=== PATIENT | female | born 1935 | race Caucasian/White ===

== ENCOUNTER 2016-11-24 17:35 | Inpatient (IN) | payer MEDICARE, BC ==
[~2016-11-24] VITALS: Ht 162.6 cm; Wt 42.7 kg
--- NOTE | ~2016-11-24 | DS ---
PATIENT'S NAME: AUDREY MICHELLE [facility] AGE: 81 Y [address] ROOM: [address] [address] LOCATION: [facility] ADMIT DATE: 11/24/2016 Discharge Summary DISCHARGE DATE: 11/27/2016 FAMILY PHYSICIAN: Danny Reich MD ATTENDING PHYSICIAN: Gabriel Lindquist PRIMARY DIAGNOSIS: Intertrochanteric fracture of the right hip. SECONDARY DIAGNOSES: 1. Dementia. 2. Hypertension. PROCEDURE PERFORMED: Open reduction and internal fixation of right hip intertrochanteric fracture with intramedullary device (gamma nail). HISTORY: The patient is an 81-year-old female transferred to [facility] from the [facility] where she was diagnosed with a right hip fracture after she fell at the skilled nursing where she resides. The patient has advanced dementia and is a severely compromised historian. Please refer to her consultation notes as well as her admission history and physical. HOSPITAL COURSE: The patient underwent the above specified procedure on 11/25/2016 without complications. General endotracheal anesthesia plus subcutaneous local anesthesia was utilized. She received 24 hours of perioperative prophylactic antibiotics. She remained hemodynamically stable and neurovascularly intact throughout her entire hospital course. Her postoperative deep venous thrombosis prophylaxis consisted of Lovenox, early mobilization, and pneumatic compression devices. She received daily physical therapy for gait training and transfer training, but the nurses had to consistently use lift for transfers. On her day of discharge on 11/27/2016, incisions of the hip were healing well and showed no signs of infection. DISPOSITION: To [facility]. DISCHARGE DIET: Diet as tolerated. DISCHARGE ACTIVITY: She is to be strict toe-touch weightbearing of her right lower extremity. There is to be no right hip strengthening or range of motion exercises. There is to be no dressing changes. She is to notify Dr. Witt immediately if she experiences increased pain, fevers, chills, erythema or drainage. DISCHARGE MEDICATIONS: 1. Lovenox 30 mg subcu daily for 14 days for postoperative DVT prophylaxis. 2. [place] 5/325 mg 1-2 tablets p.o. every 4 hours p.r.n. for pain. PATIENT'S NAME: AUDREY MICHELLE [facility] AGE: 81 Y [address] ROOM: [address] [address] LOCATION: [facility] ADMIT DATE: 11/24/2016 Discharge Summary DISCHARGE DATE: 11/27/2016 FAMILY PHYSICIAN: Danny Reich MD ATTENDING PHYSICIAN: Gabriel Lindquist 3. She was then instructed to continue all her other preadmission medications as instructed by her internal medicine doctor. FOLLOWUP APPOINTMENT: Followup appointment is to be with Dr. Witt's office 1 week subsequent to dismissal from the hospital for her initial postoperative evaluation with x-rays of the hip at that time. ROBBIN CABALLERO PA-C FOR MD SEEMA HOUGH/sheyla /[id number] d: 12/03/16512 t: 12/03/16 0921, DISCHARGE SUMMARY
--- NOTE | ~2016-11-24 | DS ---
PATIENT'S NAME: AUDREY MICHELLE [facility] AGE: 81 Y [address] ROOM: [id number] [place], [place] [address] LOCATION: G3 ADMIT DATE: 11/24/2016 Discharge Summary DISCHARGE DATE: 11/27/2016 FAMILY PHYSICIAN: Danny Reich MD ATTENDING PHYSICIAN: Gabriel Lindquist FINAL/DISCHARGE DIAGNOSES: 1. Right hip fracture status post open reduction and internal fixation. 2. Dementia. 3. Hypertension. CONSULTATIONS: Consultants on the case: Dr. Witt, Orthopedics. PROCEDURES PERFORMED: Open reduction and internal fixation of the right hip on 11/25/2016. HOSPITAL COURSE: Please see details of admission and H and P by Dr. Lindquist. Briefly, the patient was admitted on the hip fracture pathway. Dr. Witt was consulted and recommended ORIF for the patient. She was found to be an adequate candidate for surgical intervention. Surgery was performed on 11/25/2016. Postoperatively, the patient did well. Her pain was controlled with Tylenol and [place]. Her baseline confusion persisted, but did not worsen throughout her stay. The patient did have poor appetite which is unchanged from her baseline as well. Lovenox was utilized for DVT prophylaxis. Physical and Occupational Therapy worked with the patient postoperatively. It was felt that she could benefit from returning to her prison facility and continuing therapy there. It was felt by our green party that the patient could return on 11/27/2016. IMAGING STUDIES: Diagnostics: 1. X-ray of the hip shows postoperative changes of the ORIF of the right hip. 2. A chest x-ray on the shows no vascular congestion or acute parenchymal infiltrates. LABORATORY DATA: On admission; sodium 136, potassium 4.5, chloride 101, bicarbonate 27, glucose 121, BUN 25, and creatinine 0.9. Albumin was 3.3. Prealbumin on November 24 was 30. On admission, white blood cell count was 10.3, hemoglobin 10.1, hematocrit 30.6, and platelets 316,000. INR 1.0. Urinalysis showed 500 leukocyte esterase, nitrite negative, and 30 of protein. Micro shows a full field of white blood cells, 20-50 red blood cells, a few bacteria, 2-5 epithelials, and 1+ mucus. DISCHARGE INSTRUCTIONS: The patient was discharged to prison facility in [place] under the care of Dr. Reich and Dr. Witt. The PATIENT'S NAME: AUDREY MICHELLE [facility] AGE: 81 Y [address] ROOM: [address] [place], [place] [address] LOCATION: [facility] ADMIT DATE: 11/24/2016 Discharge Summary DISCHARGE DATE: 11/27/2016 FAMILY PHYSICIAN: Danny Reich MD ATTENDING PHYSICIAN: Gabriel Lindquist patient will follow up with Dr. Witt on 12/06/2016 at 9:10 a.m. Code status is full code. Diet is as tolerated. Weightbearing is toe-touch on the right. No hip range of motion or strengthening. We will continue occupational and physical therapies. We will use oxygen as needed to maintain sats greater than 90%. The patient is to have CATRACHITO hose bilaterally, on in the morning and off at night. We will get a CBC drawn on 12/02/2016. Dressing changes; patient has a Mepilex in place. No dressing changes. Staff was instructed to call Dr. Witt immediately if any signs of infection, increased pain or swelling, erythema or drainage. The patient's rehabilitation potential is fair. Discharge potential is fair. The patient and family are aware of condition and diagnosis on discharge. DISCHARGE MEDICATIONS: 1. Lovenox 30 mg daily with a start date of 11/26/2016, with a stop date of 12/09/2016. 2. Pepcid 20 mg twice daily. 3. Lisinopril 30 mg daily. Hold if systolic blood pressure is less than 110. 4. Multivitamin 1 tablet daily. 5. Hydrocodone and acetaminophen 5/325, 1 to 2 tablets every 4 hours as needed. 6. Tylenol 500 to 1000 mg every 6 hours as needed. 7. Milk of magnesia 30 mL as needed. 8. Pramosone cream 2.5% applied topically twice daily. 9. Namenda XR 28 mg daily. 10. Travatan ophthalmic drops, 1 drop each eye daily. We do appreciate participating in this patient's care, and thank you very much for the ability to serve her while hospitalized at [facility]. Time spent coordinating details of discharge was less than 30 minutes of which was spent coordinating with consulting physicians and Care Management, completion of medication reconciliation, and education to the patient and family on the above-mentioned diagnoses. ALEKSANDRA ROSS FOR MD MAURISIO JACKSON/dakotal /[id number] d: 11/28/16 1424 t: 12/03/16 0951, DISCHARGE SUMMARY
--- NOTE | ~2016-11-24 | HP ---
PATIENT'S NAME: AUDREY MICHELLE [facility] AGE: 81 Y [address] ROOM: [place] [address] LOCATION: [facility] ADMIT DATE: 11/24/2016 History & Physical DISCHARGE DATE: FAMILY PHYSICIAN: PHYSICIAN, UNKNOWN ATTENDING PHYSICIAN: KD JUNIOR DATE OF SERVICE: CHIEF COMPLAINT: Fall and right hip fracture. HISTORY OF PRESENT ILLNESS: This is an 81-year-old female who has dementia and lives at a facility, apparently fell at the facility today and was found to have a right hip fracture on evaluation. Etiology of the fall appears unclear. The patient is not known to have recurrent falls and is probably a mechanical fall. The patient during my visitation today is resting comfortably, is in moderate distress from the pain at the fracture site. The patient is pleasantly confused, but is awake and at baseline mental status from that standpoint. The patient has a history of hypertension, but otherwise does not report any chest pain, shortness of breath, dizziness, or lightheadedness. No fever or chills reported as well. PAST MEDICAL HISTORY: 1. Dementia. 2. Hypertension. SOCIAL HISTORY: The patient lives in a residential. Has a history of smoking, but stopped in August 2016. No alcohol or drug use history reported. FAMILY HISTORY: The patient has a family history of hypertension and diabetes in the mother. REVIEW OF SYSTEMS: 10-point review of systems was conducted and were all negative except as mentioned in the HPI. PHYSICAL EXAMINATION: VITAL SIGNS: Blood pressure 130/80, pulse 78, respiratory rate 14, saturating 98% on room air. GENERAL: Awake, alert, and oriented x2, in mild distress from pain. HEENT: Moist mucous membranes. No scleral icterus or conjunctival pallor noted. SKIN: Without rash or lesions. PATIENT'S NAME: AUDREY MICHELLE [facility] AGE: 81 Y [address] ROOM: [place] [address] LOCATION: [facility] ADMIT DATE: 11/24/2016 History & Physical DISCHARGE DATE: FAMILY PHYSICIAN: PHYSICIAN, UNKNOWN ATTENDING PHYSICIAN: KD JUNIOR CHEST: Clear to auscultation bilaterally. HEART: S1, S2. Regular rate and rhythm. ABDOMEN: Soft, nontender, nondistended. MUSCULOSKELETAL: Right hip tenderness to palpation and unable to move due to pain. NEURO: Grossly nonfocal. ASSESSMENT AND PLAN: 1. Right hip fracture secondary to fall. Plan for ORIF by Dr. Witt tomorrow afternoon. 2. Dementia. The patient's mental status at baseline. 3. Hypertension. We will continue the patient's home meds. 4. Deep venous thrombosis prophylaxis per Ortho following surgery. MD JORGE LUIS AVILEZ/sheyla /[id number] D: [id number] T: [id number] HISTORY & PHYSICAL
--- NOTE | ~2016-11-24 | OR ---
PATIENT'S NAME: AUDREY MICHELLE [facility] AGE: 81 Y [address] ROOM: [address] [address] LOCATION: [facility] ADMIT DATE: 11/24/2016 OR/Procedure Report DISCHARGE DATE: FAMILY PHYSICIAN: Danny Reich MD ATTENDING PHYSICIAN: KD JUNIOR SURGEON: Norman Witt MD ACCOUNT SUPPORT ASSOCIATE: DATE OF PROCEDURE: 11/25/2016 PREOPERATIVE DIAGNOSIS: Intertrochanteric fracture, right hip. POSTOPERATIVE DIAGNOSIS: Intertrochanteric fracture, right hip. PROCEDURE PERFORMED: Open reduction and internal fixation of right hip intertrochanteric fracture with intramedullary device (gamma nail). SURGEON: Norman Witt MD. ANESTHESIA: General endotracheal anesthesia plus subcutaneous local anesthesia (ropivacaine with epinephrine). ESTIMATED BLOOD LOSS: Less than 100 mL. IMPLANTS: 1. Synthes TFNA 11 mm x 235 mm 125 degree standard gamma nail. 2. 38 mm distal interlocking screw. 3. 85 mm TFNA screw. 4. Proximal anti-rotational set screw. DRAINS: None. SPECIMEN: None. COMPLICATIONS: None. INDICATION FOR PROCEDURE: Please refer to my separately dictated consultation note. The patient presents with a right hip intertrochanteric fracture. Operative and nonoperative options have been reviewed. Potential adverse sequelae of the injury itself have been reviewed. Risks, benefits, limitations, and indications for surgery have been thoroughly reviewed and informed consent has been granted. We have specifically reviewed risks and implications of the following: Infection, malunion, nonunion, deep venous thrombosis, pulmonary embolism, mortality, neurovascular complications, blood transfusion risks, decubitus ulcer formation, pneumonia, avascular necrosis, and the potential need for further surgery (including the potential need for PATIENT'S NAME: AUDREY MICHELLE [facility] AGE: 81 Y [address] ROOM: [address] [address] LOCATION: [facility] ADMIT DATE: 11/24/2016 OR/Procedure Report DISCHARGE DATE: FAMILY PHYSICIAN: Danny Reich MD ATTENDING PHYSICIAN: KD JUNIOR salvage with hip hemiarthroplasty versus total hip arthroplasty). We have discussed the necessity for 2 months of restricted weightbearing postoperatively. A preoperative internal medicine consultation has been obtained, and the patient has been medically cleared for surgery. DESCRIPTION OF PROCEDURE: The patient was positioned supine on the fracture table after administration of anesthesia and prophylactic antibiotics. The correct side and anticipated procedure were confirmed via a verbal timeout including myself, the clerical order filler, and the circulating nurse. A well-padded groin post was placed. Both feet and ankles were well padded. The left foot was placed into a stirrup-type leg nixon. The right foot was placed into a traction boot. Under fluoroscopic guidance, gentle longitudinal traction and internal rotation were applied across the fracture site through the right foot until a suitable reduction had been confirmed under AP and lateral fluoroscopic imaging. The lateral aspect of the right hip and thigh were scrubbed, prepped, and draped with vigilant sterile technique. The tip of the right greater trochanter was approached through a 5 cm direct lateral longitudinal incision. The iliotibial band was sharply divided longitudinally in line with the overlying skin incision. The tip of the right greater trochanter was palpated, and a cannulated awl was utilized to access the intramedullary canal of the proximal femur through the tip of the right greater trochanter. A ball tipped guidewire was placed through the awl and across the fracture site under fluoroscopic guidance, and the awl was subsequently removed. The cannulated entrance reamer was utilized through the appropriate soft tissue guide. The gamma nail was seated to the appropriate depth over the guidewire, and the guidewire was extracted. Fluoroscopic imaging confirmed appropriate position of the gamma nail. The outrigger guide and guide cannula were subsequently utilized to place a threaded-tipped guidewire centrally within the right femoral head and neck through a separate direct lateral 2 cm longitudinal incision. Appropriate position of the guidewire was confirmed under AP and lateral fluoroscopic imaging. Appropriate depth for the lag screw was measured. The cannulated reamer was set to the appropriate depth and fully seated through the appropriate soft tissue guide. The lag screw was seated to the appropriate depth under AP and lateral fluoroscopic guidance. The anti- rotational set screw was deployed. The outrigger guide and cannula were subsequently utilized to place the distal interlocking screw through a separate 5 mm direct lateral longitudinal incision. AP, lateral, and oblique fluoroscopic imaging of the right hip and right PATIENT'S NAME: SOTERO MICHELLEIE [facility] AGE: 81 Y [address] ROOM: [address] [address] LOCATION: [facility] ADMIT DATE: 11/24/2016 OR/Procedure Report DISCHARGE DATE: FAMILY PHYSICIAN: Danny Reich MD ATTENDING PHYSICIAN: KD JUNIOR proximal femur confirmed appropriate position of all hardware and maintenance of an appropriate reduction of the fracture. Each of the 3 incisions was thoroughly irrigated with bacteriostatic saline lavage. The fascia was closed with simple deep interrupted 0 Vicryl sutures. Each of the incisions was closed with superficial buried interrupted 2-0 Vicryl sutures and surgical dustin. The dressings consisted of Xeroform gauze, sterile gauze, and occlusive tape. There were no complications. The patient was carefully transferred off the fracture table and transported to the postanesthesia care unit in stable condition. MD MARCOS HOUGH/sheyla /[id number] d: 11/25/168 t: 11/26/162115, OPERATIVE SUMMARY
--- NOTE | ~2016-11-24 | CON ---
PATIENT'S NAME: AUDREY SANDOVAL [facility] AGE: 81 Y [address] ROOM: [place] [address] [place] [facility] ADMIT DATE: 11/24/2016 Consultation DISCHARGE DATE: FAMILY PHYSICIAN: PHYSICIAN, UNKNOWN ATTENDING PHYSICIAN: KD JUNIOR REFERRING PHYSICIAN: SIERRA HUTCHISON MD HISTORY OF PRESENT ILLNESS: Ms. Sandoval is an 81-year-old female, transferred to [facility] from the [facility] where she was diagnosed with a right hip fracture today after she fell at the assisted where she resides. The patient has advanced dementia and is a severely compromised historian. She is not able to relate the circumstances of a fall. She is accompanied by her apsnhuga-yi-gza and grandson who report that she fell at the assisted. They state that she had no known history of preexisting right hip pain. She denies pain elsewhere as a result of the incident. The patient was living independently until she fell last year and fractured her left wrist. She underwent closed reduction and percutaneous pinning with an unspecified orthopedic surgeon in [place] who recently removed the "pins" from her left wrist. The patient spent most of her time in a wheelchair at the correction facility after the wrist fracture. They have recently re-initiated gait training. The patient has been weak and demonstrating compromised balance. It is uncertain whether or not she was using her walker when she fell. ACTIVE MEDICAL PROBLEMS: Dementia. ALLERGIES: PENICILLIN AND CIPROFLOXACIN. REVIEW OF SYSTEMS: No history of diabetes mellitus. No history of deep venous thrombosis. SOCIAL HISTORY: longterm resident accompanied by her [id number] and grandson. PHYSICAL EXAMINATION: GENERAL: The patient is alert and responsive and confabulating. She is not agitated. MUSCULOSKELETAL: She demonstrates painless, unrestricted active range of motion of her cervical spine and both upper extremities. The right lower extremity is shortened and externally rotated versus the left. There is no pain with passive range of motion of the left hip. There is pain with gentle passive range of motion of the right hip. There is no swelling or tenderness PATIENT'S NAME: AUDREY SANDOVAL [facility] AGE: 81 Y [address] ROOM: [place] [address] [place] [facility] [place] DATE: 11/24/2016 Consultation DISCHARGE DATE: FAMILY PHYSICIAN: PHYSICIAN, UNKNOWN ATTENDING PHYSICIAN: KD JUNIOR at either knee. She is able to actively dorsiflex and plantar flex the right ankle with 4-/5 motor strength. 2+ dorsalis pedis pulse on the right. RADIOGRAPHS: I have reviewed the outside radiographs of the right hip. There is a comminuted intertrochanteric fracture with varus malalignment. There is no hardware. There is no lytic lesion. There is significant generalized osteopenia. IMPRESSION: Comminuted intertrochanteric right hip fracture with significant generalized osteopenia and dementia. RECOMMENDATIONS: I have discussed the etiology and natural history of this condition. I have discussed the operative and nonoperative options. I have discussed potential adverse sequelae of the injury itself. I have recommended open reduction and internal fixation with an intramedullary device. I have discussed technical aspects of surgery as well as risks and limitations thereof. I specifically discussed the potential for infection, malunion, nonunion, and neurovascular complications, blood transfusion risks, as well as the potential need for further surgery and this is including the potential need for salvage with hemiarthroplasty. The patient has been placed at bedrest. Mechanical DVT prophylaxis and incentive spirometry have been initiated. The patient has been admitted to the hospitalist service. The hospitalist team will provide preoperative medical optimization as well as perioperative medical management. I have informed the patient and her family members to anticipate 2 months of restricted weightbearing and transfer back to the correction facility from where she came. All of their questions and concerns have been answered to their satisfaction. We will proceed with surgery tomorrow (pending medical clearance and operating room availability). MD MARCOS HOUGH/sheyla PATIENT'S NAME: AUDREY SANDOVAL [facility] AGE: 81 Y [address] ROOM: [address] [address] [place] [facility] ADMIT DATE: 11/24/2016 Consultation DISCHARGE DATE: FAMILY PHYSICIAN: PHYSICIAN, UNKNOWN ATTENDING PHYSICIAN: KD JUNIOR /[id number] d: 11/25/16 0105 t: 11/26/16 2114, CONSULTATION REPORT
[2016-11-24 20:18] LABS: BASOPHIL % 0.3 %; EOSINOPHIL % 0.2 %; HEMATOCRIT 30.6 % (30.0-46.0); HEMOGLOBIN 10.1 g/dL (10.0-15.0); IMMATURE GRANULOCYTE % 0.3 %; LYMPHOCYTE # 1.2 K/uL (0.8-4.0); LYMPHOCYTE % 11.3 %; MCH 32.5 pg (27.0-34.0); MCV 98.4 fl (83.0-98.0); MONOCYTE # 0.8 K/uL (0.0-1.0); MONOCYTE % 7.7 %; MPV 9.2 fl (9.4-12.4); NEUTROPHIL # (ANC) 8.3 K/uL (1.8-7.8); NEUTROPHIL % 80.2 %; NRBC % 0 /100WBC (0-0.00); PLATELET COUNT 316 K/uL (150-450); RBC 3.11 M/uL (3.00-5.00); RDW-CV 13.7 % (11.9-14.6); WBC 10.3 K/uL (4.0-11.0)
[2016-11-24 20:27] LABS: PROTIME 10.1 SECONDS (9.6-11.1); PTT 23 SECONDS (25-32)
[2016-11-24 20:34] LABS: ALBUMIN 3.3 gm/dL (3.5-5.0); ANION GAP 12.5 (10.0-19.0); CALCIUM 8.3 mg/dL (8.5-10.5); CREATININE 0.9 mg/dL (0.5-1.1); PHOSPHORUS 3.2 mg/dL (2.5-4.9); POTASSIUM 4.5 mMol/L (3.7-5.1)
[2016-11-24] MEDS ORDERED: HYDROCODON-ACE1 EAC4 PO (21:47)
[2016-11-24] MEDS ORDERED: ZESTRIL30 MG PO (21:50)
[2016-11-24] MEDS ORDERED: PRAMOSONE30 G1 TOP (21:50)
[2016-11-24] MEDS ORDERED: THERA-VITE W/ B1 TAB PO (21:51)
[2016-11-24] MEDS ORDERED: NAMENDA XR28 MG PO (21:56)
[2016-11-24] MEDS ORDERED: TRAVATAN Z OPH2.5 ML OPHTH (21:59)
[2016-11-24 22:19] LABS: BILIRUBIN URINE NEGATIVE (NEGATIVE); BLOOD URINE 150 /UL (NEGATIVE); COLOR URINE YELLOW (YELLOW); GLUCOSE URINE NEGATIVE (NEGATIVE); KETONE URINE NEGATIVE (NEGATIVE); LEUKOCYTES URINE 500 /UL (NEGATIVE); NITRITE URINE NEGATIVE (NEGATIVE); PH URINE 6.5 (4.0-8.0); PROTEIN URINE 30 mg/dL (NEGATIVE); TURBIDITY URINE 1+ (CLEAR); UROBILINOGEN URINE NORMAL (NORMAL)
[2016-11-24 22:31] LABS: RBC URINE 20-50 #/HPF (NEGATIVE); WBC URINE FULL FIELD #/HPF (NEGATIVE)
[2016-11-24 22:32] LABS: AMORPHOUS URINE 2+ (NEGATIVE); BACTERIA URINE FEW (NEGATIVE); MUCUS URINE 1+ (NEGATIVE)
--- NOTE | 2016-11-25 03:09 | NUR ---
Pt arrived to floor at 1855 accompanied by EMT staff and RANJANA Jimenez. Pt had fallen at long term and admitted for right hip fracture. Pt alert but disoriented x3, which POA states is her baseline. Moves all extremities spontaneously, follows most commands. PERRL. CSM intact. Hip precautions in place. Pt kept on bedrest. Street catheter draining cloudy adelaida urine. PIV to right hand with D5 at 80ml/hr. Pain controlled well with extra strength tylenol. Plan is for possible ORIF with Dr. Witt tomorrow. Pt kept NPO after midnoc. Consents signed on chart, pre-op checklist started on chart.
[2016-11-25] MEDS ORDERED: MACROBID100 MG PO (10:32)
--- NOTE | 2016-11-25 15:20 | NUR ---
1520 Introduced self/role to patients [id number] Brynn. Patient lives at [facility]. Plan is for return there and [place] [facility]. Will sent them updates tomorrow. Brynn stated the doctor told her patient may be ready for discharge Friday. Did talk about transportation options. Ambulance if appropriate but no guarantee Medicare will cover the cost or the SNF van. Will asses that need over the next 2 days. Added my name to the marker board, will continue to follow.
--- NOTE | 2016-11-25 17:01 | NUR ---
Significant Event: Pt up from PACU at 1625. VSS, slightly HTN, very restless. IVs intact. Robert intact with 400mL out after surgery. Taking water well. Needs assistance with meals. Takes pills crushed. On RA. Encourage IS. [facility]SU is to be bringing up her personal belonging and supplies. Dementia. Trying to pull at robert, IV and dressing. Dressing to right hip C/D/I. TTWB R) LE. Turn q2hr. IVF running. [place] given at 1600. Heels elevated. Kalin hose on, foot pumps in use. 3rd half hour vital due at 1840. Neuro due for you at 1900. Follow up:
--- NOTE | 2016-11-25 19:27 | NUR ---
Significant Event: Alert, disoriented x3, incomprehensible speech, trying to get out of bed. VSS, afebrile, room air. Street. R) hand IV fluids 80 ml/hr. To surgery at 1030 then transfer to .
--- NOTE | 2016-11-26 02:54 | NUR ---
Shift Summary: Patient has dementia and is very confused all the time. Has not slept all shift. Has visiual hallucinations and talks to them. Constantly moving. Swallows pills whole in applesauce or pudding. Gave 2 Rodessa at 0155. Left her jeremy hose on and removed foot pumps due to increased aggitation with the foot pumps on. Has robert that needs to be removed once PT works with patient. She needs assistance with meals.
[2016-11-26 05:35] LABS: HEMATOCRIT 22.7 % (30.0-46.0); HEMOGLOBIN 7.7 g/dL (10.0-15.0)
--- NOTE | 2016-11-26 09:35 | NUR ---
0935 Talked to patients nurse Aydee, wondered if patient should go by unit or SNF van back to [place]. She wasn't sure yet as therapies has not seen her. 0945 Left a message on DON's phone seeing if they had questions and if I could fax them some updates. Patient should be returning to them tomorrow but unsure if it will be a unit or their van. 0955 Asked Donna in PT about transportation. She has not seen patient yet. 1145 Nurse Aydee let me know due to restlessness patient should go by unit. 1330 called [facility] again and spoke to Ania. Gave her some updates, faxed some info. Let her know patient should be returning tomorrow. 154 Spoke to unit Zoey barrera about dismissal tomorrow, orders on the chart, she will start a packet. Ambulance cert placed on chart and flagged with a sticky note. Updated patients family, Jovannyerna. Talked to Kalyn Giraldo also.
--- NOTE | 2016-11-26 10:30 | NUR ---
[id number] [facility] Nursing Students, Monitored assessments, documentaiton and medication administration
--- NOTE | 2016-11-26 16:42 | NUR ---
Significant Event: Pivot transfers with two assist. Does okay with TTWB to R) leg. Street removed at 1130, no void since. [place] 1 tab last at 1610. Dressings to R) hip C/D/I. Pocketing pills this am, giving crushed in applesauce or pudding since. Dementia, disoriented X3. Auditory and Visual hallucinations. Bed/chair alarms for safety. Pedal pulse 2+, moved ankles and toes. Unable to assess sensation. Follow up:
--- NOTE | 2016-11-27 04:32 | NUR ---
POD#2 RIGHT HIP FX REPAIR, INCISION SITE X 2 WITH MEPILEX CDI, GOOD CSMS, BILATERAL WRIST PIVS SALINE LOCKED. ROSARIO REMOVED YESTERDAY AT 1600 AND WAS INC X 1 AND VOIDED PER BSC X 1, NO BM THIS SHIFT, POOR INTAKE OF NUTRITION AND FLUIDS AND REQUIRES FULL ASSIST WITH ALL MEALS. MAX ASSIST WITH TRANSFERS AND CUEING. VS WNL, RESTED WELL THIS SHIFT, PILLS IN APPLESAUCE WTIH SIPS, PAIN MGT WITH NORCO [phone]. PLAN TO DC TO [facility] FRIDAY WHEN DISCHARGED.
[2016-11-27 05:37] LABS: HEMATOCRIT 22.7 % (30.0-46.0)
[2016-11-27 05:39] LABS: HEMOGLOBIN 7.6 g/dL (10.0-15.0)
--- NOTE | 2016-11-27 08:30 | NUR ---
0830 Called Bernarda at [facility], yes they can take patient back today. She stated the earlier the better. 0850 Called Kayla with EMS, she will call me back. 0935 Kayla from EMS called and we can transport at 1030. Communicated this to Kalyn Giraldo, Charge Nurse Nate, and Unit Sec Zoey. [id number] Faxed orders and wrote on the cover sheet that patient would be leaving her around 1045. Updated patients nurse Zee and gave her nurse to nurse number. [phone] Called patients [id number] Brynn. She will just meet the unit at [facility]. [facility] - [facility] P#[phone] and F#[phone]
--- NOTE | 2016-11-27 09:55 | NUR ---
patient 2 assist to bsc. heavy transfer, able to ttwb on right leg. patient confused to time and place. forgetful and calm and cooperative this am. [place] given one tab at 0730. mepilex dressings to right thigh/hip area. csm appears normal, patient couldn't respond if she had numbness/tingling, color pale, pulses palpable. jeremy hose in place. BM this am, void moderate amt in BSC. continent. Lungs clear diminished, cough nonproductive.
--- NOTE | 2016-11-27 10:03 | NUR ---
[id number] [facility] Freelance Operator, monitiored documentation, assessment and medication administration
== END 2016-11-27 10:40 | DRG 481 ==
LOC: G3N 18:55 → GMSU 18:55 → G3N 11-25 12:58
PROVIDERS: Orthopaedic Surgery; Physician Assistant; ADMIT Internal Medicine
PROC: 0QSB36Z Reposition Right Lower Femur with Intramedullary Internal Fixation Device, Percutaneous Approach (ICD-10-PCS; principal; 2016-11-25)
DX: S72.141A Displaced intertrochanteric fracture of right femur, initial encounter for closed fracture (principal); E44.0 Moderate protein-calorie malnutrition; F03.90 Unspecified dementia, unspecified severity, without behavioral disturbance, psychotic disturbance, mood disturbance, and anxiety; Z68.1 Body mass index [BMI] 19.9 or less, adult; D62 Acute posthemorrhagic anemia; W19.XXXA Unspecified fall, initial encounter
CPT/HCPCS: C1713; J1650; J2001; J2270; J7030; J7042; J7120

== ENCOUNTER → 2016-11-27 | Outpatient (CLI) | payer MEDICARE, BC ==
[~2016-11-27] MED LIST: HYDROCODON-ACE1 EAC4 PO; MACROBID100 MG PO; NAMENDA XR28 MG PO; PRAMOSONE30 G1 TOP; THERA-VITE W/ B1 TAB PO; TRAVATAN Z OPH2.5 ML OPHTH; ZESTRIL30 MG PO
== END | disposition disaster alternative care site (69) ==
LOC: GAMB 10:48
DX: M25.551 Pain in right hip (principal); S72.001D Fracture of unspecified part of neck of right femur, subsequent encounter for closed fracture with routine healing; F03.90 Unspecified dementia, unspecified severity, without behavioral disturbance, psychotic disturbance, mood disturbance, and anxiety; I10 Essential (primary) hypertension; Z79.891 Long term (current) use of opiate analgesic; Z79.899 Other long term (current) drug therapy; Z79.01 Long term (current) use of anticoagulants; Z88.0 Allergy status to penicillin; Z88.1 Allergy status to other antibiotic agents; X58.XXXD Exposure to other specified factors, subsequent encounter
CPT/HCPCS: A0425; A0428